=== PATIENT | male | born 1955 | race Caucasian/White ===

== ENCOUNTER 2017-10-03 22:38 | Inpatient (IN) | payer MEDICARE, OTHER ==
[~2017-10-03] VITALS: Ht 193 cm; Wt 164.1 kg
[2017-10-03 22:39] VITALS: BP 136/82
[2017-10-03] MEDS ORDERED: [UNRECOGNIZED DRUG - OTHER] (22:42)
[2017-10-03 23:06] LABS: HEMATOCRIT 39.5 % (42.0-52.0); HEMOGLOBIN 13.7 gm/dL (14.0-18.0); MCH 34.1 pg (26.0-34.0); MCHC 34.8 g/dL (28.0-37.0); MPV 8.7 fl. (7.2-11.1); NUCLEATED RBCS 0 /100WBC; PLATELET COUNT* 91 thou/uL (150-400); RBC 4.03 mil/uL (4.50-6.00); WBC 2.9 thou/uL (4.0-11.0)
[2017-10-03 23:09] LABS: ANION GAP 11 mmol/L (7-16); BUN 18 mg/dL (7-18); CALCIUM 8.5 mg/dL (8.5-10.1); CHLORIDE 99 mmol/L (98-107); CO2 22 mmol/L (21-32); CREATININE 1.6 mg/dL (0.6-1.3); GLUCOSE 284 mg/dL (70-99); POTASSIUM 4.1 mmol/L (3.5-5.1); SODIUM 132 mmol/L (136-145)
[2017-10-03 23:19] LABS: ALBUMIN 3.4 g/dL (3.4-5.0); ALKALINE PHOSPHATASE 69 U/L (46-116); NT-PRO BRAIN NAT PEPTIDE 90 pg/mL (<300); SGOT 33 U/L (15-37); SGPT 53 U/L (30-65); TOTAL BILIRUBIN 0.9 mg/dL (<0.1-1.0); TROPONIN-I LEVEL <0.06 ng/mL (<0.06)
[2017-10-03 23:20] LABS: INR 1.3; PROTIME 12.2 Seconds (9.20-11.50)
[2017-10-03 23:36] LABS: INFLUENZA A ANTIGEN None Detected (None Detect); INFLUENZA B ANTIGEN None Detected (None Detect)
[2017-10-04] VITALS (7 sets, daily range): BP systolic 102–133; BP diastolic 51–88
[2017-10-04 00:17] LABS: ABSOLUTE LYMPHOCYTES 0.6 thou/uL (0.8-5.3); ABSOLUTE MONOCYTES 0.3 thou/uL (0.0-1.2)
[2017-10-04 00:18] LABS: PLATELET ESTIMATE DECREASED
[2017-10-04] MEDS ORDERED: XARELTO20 MG PO (01:32)
[2017-10-04] MEDS ORDERED: POMALYST2 MG PO (01:37)
[2017-10-04] MEDS ORDERED: POMALYST4 MG PO (01:39)
[2017-10-04] MEDS ORDERED: GLIPIZIDE 10 MG10 MG PO (01:40)
[2017-10-04] MEDS ORDERED: XANAX 0.25 MG0.25 MG PO (01:41)
--- NOTE | 2017-10-04 02:55 | NUR ---
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 TRACING SR HR 89. ASSESSMENT AND VITALS COMPLETED CHARTED, VSS. PATIENT ON 2L O2 WITH SATS 95%, HOWEVER, PATIENT GETS EXTREMELY SHORT OF AIR WITH ANY EXERTION. PATIENT REQUIRED 3L O2 NC TO TRANSFER FROM ER CART TO UNIT BED, BUT SATS IMPROVED WITH REST. PATIENT IS ALSO VERY WEAK, MORESO THAN HIS USUAL WEAKNESS PER THE PATIENT. PATIENT HAS MULTIPLE MYELOMA AND RECEIVING CHEMOTHERAPY. WBC AND PLATELETS LOW, BUT THIS IS CHRONIC AND THEREFORE PATIENT SCREENING NEGATIVE ON SEPSIS SCREEN. IVF INFUSING PER ORDERS. PATIENT EDUCATED ON FALL PRECAUTIONS. CALL LIGHT WITHIN REACH. GOAL IS IMPROVEMENT IN WEAKNESS AND BREATHING.
--- NOTE | 2017-10-04 04:19 | NUR ---
PATIENT PARTIALLY PROGRESSING TOWARDS GOALS: O2 SATS MAINTAINED >92% ON 2L NC AND HOME CPAP. PATIENT DENIES CHEST PAIN, SOB, PAIN AND DISCOMFORT. PATIENT WAS ABLE TO STAND AT EDGE OF BED TO USE URINAL, BUT REQUIRES ASSIST OF 1-2 AND WAS UNSTEADY ON HIS FEET. HOURLY ROUNDING OBSERVED. CALL LIGHT WITHIN REACH
--- NOTE | 2017-10-04 13:54 | EKG ---
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: BD : [id number] Requested By: Leobardo Calabrese Order Number: [id number] MD: Yasir Miramontes Measurements Intervals [place] Rate: 95 P: 18 [place]: 170 QRS: 12 QRSD: 81 T: -4 QT: 333 QTc: 419 Interpretive Statements Sinus rhythm Abnormal R-wave progression, early transition Borderline T abnormalities, inferior leads No previous ECG available for comparison Electronically Signed On 10-04-2017 13:54:26 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
--- NOTE | 2017-10-04 19:04 | NUR ---
PATIENT RESTING IN BED IN ROOM. UP WITH STANDBY ASSIST. O2 AT 2L PER NC FOR MAINTENACE. IV STEROID ADJUSTED PER DR DESHPANDE. HEMONC CONSULT FOR DECREASED WBC. HOURLY ROUNDING COMOPLETD FOR PATINET SAFETY.
--- NOTE | 2017-10-05 02:57 | NUR ---
PT A/OX4, RA, SR WITH PAC'S ON THE MONITOR, UP SBA DUE TO SOA WITH AMBULATION, FREE FROM PAIN, REPORTED HE IS FEELING A LOT BETTER THAN WHEN HE FIRST GOT HERE, PT EXPRESSED FRUSTRATIONS REGARDING NOT REC HIS CHEMO MEDICATION HE BROUGHT FROM HOME, PT EXPRESSED CONCERNS ON IF HE DOES NOT GET THE DOSE BY MIDNIGHT HE IS UNABLE TO TAKE IT DUE TO THE SCHEDULE, CONTACTED DR PHAM WHO APPROVED STARTING PT'S HOME MED, VERIFIED MEDICATION OVER THE PHONE WITH [facility], LABEL REC FROM HOUSE SUP, MED GIVEN PER ORDERS, VSS, FALL PRECAUTIONS/HOURLY ROUNDING IN PLACE, WILL CONT TO MONITOR.
[2017-10-05 04:17] VITALS: BP 101/46
--- NOTE | 2017-10-05 06:07 | NUR ---
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
--- NOTE | 2017-10-05 10:48 | NUR ---
PATINET RESTING IN CHAIR IN ROOM. UP WITH STANDBY ASSIST R/T RECENT WEAKNESS AT HOME. PAITNET WAS TO HAVE CHEMO TREATMENT TODAY WITH DR ONEILL, OFFICE CONTACTED AND TREATMENT TO BE RESCHEDULED. VITAL SIFGNS STABLE AND PAITNET IN NO APPARENT DISTRESS AT THIS TIME. PAITNET LUNGS ARE CLEAR AND DIMINISHED. PAITNET READY TO DISCHARGE HOME WHEN MEDICALLY APPROPRIATE. HOURLY ROUNDING BEING COMPLETD FOR PATIENT SAFETY.
[2017-10-05] MEDS ORDERED: PREDNISONE 20 M20 MG PO (11:45)
[2017-10-05] MEDS ORDERED: LEVAQUIN 500 M500 M2 PO (11:45)
[2017-10-05 12:20] VITALS: BP 149/68
[2017-10-05 13:00] VITALS: BP 149/68
[2017-10-05 13:10] VITALS: BP 149/68
--- NOTE | 2017-10-05 14:23 | NUR ---
ORDER RECEIVED TO [facility] TO SELF CARE. MED REC, MEDICATION EDUCATION, STROKE EDUCATION, AND NEED FOR FOLLOW UP APPOINTMENTS WITH PRIMARY AND CHEMOTHERAPY AT THE [facility] COVERED AND STATED UNDERSTOOD BY MIGUELANGEL. IV AND TELEMTRY PACK REMOVED. HOURLY ROUNDING COMPLETED FOR PATIENT SAFETY AND PAITENT PARTICIPATED IN PLAN OF CARE. DISCHARGE TOME OF 13:30.
== END 2017-10-05 13:40 | disposition home or self-care (01) | DRG 177 ==
LOC: M.ERS 22:38 → M.2W 10-04 00:34 → M.TBA-ER 10-04 00:34 → M.2W 10-04 00:34
PROVIDERS: Family Medicine; ADMIT Family Medicine
PROC: 5A09357 Assistance with Respiratory Ventilation, Less than 24 Consecutive Hours, Continuous Positive Airway Pressure (ICD-10-PCS; principal; 2017-10-04)
DX: J15.6 Pneumonia due to other Gram-negative bacteria (principal); J96.01 Acute respiratory failure with hypoxia; D61.810 Antineoplastic chemotherapy induced pancytopenia; C90.00 Multiple myeloma not having achieved remission; Z94.84 Stem cells transplant status; B34.9 Viral infection, unspecified; J20.9 Acute bronchitis, unspecified; Z77.22 Contact with and (suspected) exposure to environmental tobacco smoke (acute) (chronic); E11.9 Type 2 diabetes mellitus without complications; Z91.041 Radiographic dye allergy status; Z79.899 Other long term (current) drug therapy; Z82.49 Family history of ischemic heart disease and other diseases of the circulatory system